=== PATIENT | female | born 1960 | race Native Hawaiian/Other Pacific Islander ===

== ENCOUNTER 2016-09-15 12:20 | Outpatient (CLI) | payer OTHER ==
[~2016-09-15 12:20] MED LIST: ACET7.5T70 PO; ACTOPLUS M15 MG/500 OR; ADIPEX PO; ALBUTEROL0.083 % IN; ALPR0.2566 PO; ASPIRIN325 M1 OR; CETIRIZINE10 MG PO; CLOPIDOGREL75 MG PO; CYCL10TA35 PO; DALIRESP500 MC1 OR; DITROPAN XL10 MG PO; DOCU100C10 PO; FLUT0.05 NAS; FLUTMIS14 INH; GABA100C2 PO; HYDR25TA60 PO; IPRASOL5 IN; LACTSYP31 PO; LINZESS290 MCG PO; LIPITOR20 MG PO; LISI20TA11 PO; LISINOP/HCTZ1 TA2 PO; MUCINEX600 MG OR; MULT VITAMI1 OR; NAPROSYN500 MG OR; NEXIUM40 M1 PO; OMEPRAZOLE20 M1 PO; POLY3350 PO; PROVENTIL IN; PROVERA10 MG OR; RANI150T78 PO; SPIRIVA IN; TOPAMAX50 MG OR; TRAM50TA PO; XYZAL5 MG PO; Z-PAK PO
[2016-09-15 13:15] LABS: PLATELET COUNT 209 K/uL (152-353)
== END 2016-09-15 19:18 | disposition home or self-care (01) ==
LOC: LAB 12:20
PROVIDERS: Nurse Practitioner Family
DX: D64.89 Other specified anemias (principal)
CPT/HCPCS: 85027

== ENCOUNTER 2016-11-11 13:36 | Outpatient (CLI) | payer OTHER ==
[2016-11-11 15:58] LABS: PLATELET COUNT 186 K/uL (152-353)
[2016-11-11 18:55] LABS: POTASSIUM 3.7 mmol/L (3.6-5.2); SODIUM 145 mmol/L (136-145)
== END 2016-11-11 20:48 | disposition home or self-care (01) ==
LOC: LAB 13:36
PROVIDERS: Nurse Practitioner Family
DX: I10 Essential (primary) hypertension (principal); E78.4 Other hyperlipidemia; Z79.899 Other long term (current) drug therapy; I25.10 Atherosclerotic heart disease of native coronary artery without angina pectoris; D64.89 Other specified anemias; E55.9 Vitamin D deficiency, unspecified; J44.9 Chronic obstructive pulmonary disease, unspecified
CPT/HCPCS: 80053; 80061; 82306; 82607; 83036; 84439; 84443; 85027

== ENCOUNTER 2017-01-10 09:15 | Inpatient (IN) | payer OTHER ==
[~2017-01-10] VITALS: Ht 160 cm; Wt 90.8 kg
[2017-01-10 09:20] VITALS: BP 162/92; TEMP 98.5
[2017-01-10 10:40] LABS: PLATELET COUNT 143 K/uL (152-353)
[2017-01-10 10:55] LABS: POTASSIUM 3.7 mmol/L (3.6-5.2); SODIUM 141 mmol/L (136-145)
[2017-01-10 11:20] VITALS: BP 144/89
[2017-01-10 11:34] LABS: PARTIAL THROMBOPLASTIN TIME 28.3 SECONDS (24.5-33.6)
[2017-01-10 13:20] VITALS: BP 152/90
[2017-01-10] MEDS ORDERED: ASPIRIN 81 LOW81 MG PO (18:13)
[2017-01-10] MEDS ORDERED: LIPITOR10 MG PO (18:14)
[2017-01-10] MEDS ORDERED: ATEN25TA21 PO (18:19)
[2017-01-10] MEDS ORDERED: ULTRACET1 TAB PO (18:19)
[2017-01-10] MEDS ORDERED: INCRUSE EL62.5 MCG/I IN (18:20)
[2017-01-10 18:25] VITALS: BP 141/50; TEMP 99.5; Ht 160 cm; Wt 90.8 kg
--- NOTE | 2017-01-10 20:00 | NUR ---
PM ASSESSMENT COMPLETED. PT ALERT AND ORIENTED. LAUGHING AND TALKING WITH NURSE. NURSE REVIEWED IMPORTANCE OF INCENTIVE SPIROMETER AND AMBULATION. PT VOICED UNDERSTANDING. NO COMPLAINTS AT THIS TIME.
[2017-01-10 20:14] VITALS: BP 124/60; TEMP 97.7
--- NOTE | 2017-01-10 21:30 | NUR ---
WARM BLANKET GIVEN. PT VOICES NO COMPLAINTS.
[2017-01-11] VITALS (7 sets, daily range): BP systolic 101–148; BP diastolic 35–71; TEMP 97.8–99.3
[2017-01-11 05:09] LABS: PLATELET COUNT 143 K/uL (152-353)
[2017-01-11 05:30] LABS: POTASSIUM 3.3 mmol/L (3.6-5.2); SODIUM 140 mmol/L (136-145)
--- NOTE | 2017-01-11 06:26 | NUR ---
PT AMBULATING IN HALLWAY.
--- NOTE | 2017-01-11 08:05 | NUR ---
BREATHING TX DUONEB GIVEN AT THIS TIME, PT IN NO DISTRESS. BS CLEAR. 98% ON ROOM AIR. HR 60. WILL CONT TO MONITOR.
[2017-01-12 04:00] VITALS: BP 119/74; TEMP 98.7
[2017-01-12 05:19] LABS: PLATELET COUNT 120 K/uL (152-353)
[2017-01-12 05:43] LABS: POTASSIUM 3.8 mmol/L (3.6-5.2); SODIUM 140 mmol/L (136-145)
[2017-01-12 08:00] VITALS: BP 144/57; TEMP 97.4
[2017-01-12 12:00] VITALS: BP 125/53; TEMP 97.8
[2017-01-12 16:10] VITALS: BP 114/48; TEMP 97.6
[2017-01-12 20:00] VITALS: BP 140/64; TEMP 97.7
[2017-01-13] VITALS: BP 146/85; TEMP 97.7
[2017-01-13 04:00] VITALS: BP 120/64; TEMP 98.1
[2017-01-13 05:10] LABS: PLATELET COUNT 157 K/uL (152-353)
[2017-01-13 05:28] LABS: POTASSIUM 4.1 mmol/L (3.6-5.2); SODIUM 141 mmol/L (136-145)
[2017-01-13 08:00] VITALS: BP 129/48; TEMP 97.4
[2017-01-13 12:00] VITALS: BP 103/46; TEMP 97.6
[2017-01-13 16:00] VITALS: BP 150/81; TEMP 98.6
[2017-01-13 20:00] VITALS: BP 143/45; TEMP 98.1
[2017-01-14 00:20] VITALS: BP 113/50; TEMP 97.8
[2017-01-14 04:00] VITALS: BP 143/51; TEMP 97.8
[2017-01-14 05:44] LABS: PLATELET COUNT 163 K/uL (152-353)
[2017-01-14 06:01] LABS: POTASSIUM 3.9 mmol/L (3.6-5.2); SODIUM 139 mmol/L (136-145)
--- NOTE | 2017-01-14 07:39 | NUR ---
BREATHING TX DUONEB GIVEN AT THIS TIME, PT IN NO ACUTE DISTRESS.
[2017-01-14 08:00] VITALS: BP 150/70; TEMP 98.3
[2017-01-14 11:59] VITALS: BP 107/53; TEMP 98.2
== END 2017-01-14 16:30 | disposition home or self-care (01) | DRG 871 ==
LOC: ED 09:15 → MED/SURG 15:11
PROVIDERS: Internal Medicine; ADMIT Specialist
DX: A41.89 Other specified sepsis (principal); J18.8 Other pneumonia, unspecified organism; E87.6 Hypokalemia; J44.9 Chronic obstructive pulmonary disease, unspecified; I25.10 Atherosclerotic heart disease of native coronary artery without angina pectoris; D50.8 Other iron deficiency anemias
CPT/HCPCS: 36415; 36600; 80053; 82805; 83735; 84100; 85027; 85610; 85730; 86850; 86900; 86901; 87040; 87077; 87185; 87186; 87205; 93005; 94640; 94664; 94760; 96372; 99284; J1644; J1956; Q9963

== ENCOUNTER 2017-01-28 08:59 | Emergency (ER) | payer OTHER ==
[~2017-01-28] VITALS: Ht 167.6 cm; Wt 85.3 kg
[~2017-01-28 08:59] MED LIST changes: +ASPIRIN 81 LOW81 MG PO; +ATEN25TA21 PO; +INCRUSE EL62.5 MCG/I IN; +LIPITOR10 MG PO; +ULTRACET1 TAB PO
[2017-01-28 09:18] VITALS: BP 129/46; TEMP 98.1
[2017-01-28] MEDS ORDERED: FLUTMIS14 INH (09:23)
[2017-01-28] MEDS ORDERED: FLUTICASONE50 MCG (09:24)
== END 2017-01-28 10:20 | disposition home or self-care (01) ==
LOC: ED 08:59
DX: S83.8X1A Sprain of other specified parts of right knee, initial encounter (principal); S93.491A Sprain of other ligament of right ankle, initial encounter; W18.39XA Other fall on same level, initial encounter; Y92.098 Other place in other non-institutional residence as the place of occurrence of the external cause
CPT/HCPCS: 99282

== ENCOUNTER 2017-05-18 11:35 | Outpatient (CLI) | payer OTHER ==
[~2017-05-18 11:35] MED LIST changes: +FLUTICASONE50 MCG
[2017-05-18 12:46] LABS: PLATELET COUNT 230 K/uL (152-353)
[2017-05-18 13:17] LABS: POTASSIUM 3.4 mmol/L (3.6-5.2); SODIUM 142 mmol/L (136-145)
== END 2017-05-18 12:35 | disposition home or self-care (01) ==
LOC: LAB 11:35
PROVIDERS: Nurse Practitioner Family
DX: D64.89 Other specified anemias (principal); E87.6 Hypokalemia; I10 Essential (primary) hypertension; J44.9 Chronic obstructive pulmonary disease, unspecified; I25.10 Atherosclerotic heart disease of native coronary artery without angina pectoris; E78.4 Other hyperlipidemia; Z79.899 Other long term (current) drug therapy; Z51.81 Encounter for therapeutic drug level monitoring
CPT/HCPCS: 80053; 80061; 83036; 84436; 84443; 85027

== ENCOUNTER 2017-09-26 09:18 | Observation (INO) | payer OTHER ==
[~2017-09-26] VITALS: Ht 160 cm; Wt 98.6 kg
[2017-09-26 09:58] VITALS: BP 179/73; TEMP 98.8; Ht 160 cm; Wt 98.6 kg
[2017-09-26 10:49] LABS: PLATELET COUNT 196 K/uL (152-353)
[2017-09-26 11:07] LABS: PARTIAL THROMBOPLASTIN TIME 27.8 SECONDS (24.5-33.6)
[2017-09-26 11:11] LABS: POTASSIUM 3.9 mmol/L (3.6-5.2)
[2017-09-26 12:00] VITALS: BP 179/73; TEMP 98.8
[2017-09-26 16:00] VITALS: BP 179/73; TEMP 98.8
[2017-09-26 20:00] VITALS: BP 136/92; TEMP 98.1
[2017-09-26 23:52] VITALS: BP 142/40; TEMP 97.9
[2017-09-27 04:00] VITALS: BP 155/65; TEMP 97.9
[2017-09-27 08:00] VITALS: BP 142/56; TEMP 98
[2017-09-27 12:00] VITALS: BP 134/41; TEMP 98
[2017-09-27 12:46] LABS: PLATELET COUNT 190 K/uL (152-353)
[2017-09-27 13:01] LABS: POTASSIUM 4.9 mmol/L (3.6-5.2)
[2017-09-27 16:00] VITALS: BP 129/43; TEMP 97.8
[2017-09-27 20:00] VITALS: BP 135/52; TEMP 98.2
[2017-09-28] VITALS: BP 159/70; TEMP 97.8
[2017-09-28 04:00] VITALS: BP 163/54; TEMP 98.4
[2017-09-28 05:39] LABS: PLATELET COUNT 181 K/uL (152-353)
[2017-09-28 05:51] LABS: POTASSIUM 4.3 mmol/L (3.6-5.2)
[2017-09-28 08:06] VITALS: BP 153/51; TEMP 98.1
== END 2017-09-28 14:05 | disposition home or self-care (01) ==
LOC: MED/SURG 09:18
PROVIDERS: Family Medicine
DX: J44.1 Chronic obstructive pulmonary disease with (acute) exacerbation (principal); I10 Essential (primary) hypertension; I25.10 Atherosclerotic heart disease of native coronary artery without angina pectoris; E78.4 Other hyperlipidemia; K21.9 Gastro-esophageal reflux disease without esophagitis; R60.0 Localized edema; R06.02 Shortness of breath
CPT/HCPCS: 36415; 36600; 80053; 82805; 83735; 83880; 85027; 85610; 85730; 93005; 94640; 94664; 94760; 96367; 96374; 99220; G0378; G0379; J3490

== ENCOUNTER 2017-11-10 13:18 | Outpatient (CLI) | payer OTHER ==
[2017-11-10 13:35] LABS: PLATELET COUNT 145 K/uL (152-353)
[2017-11-10 13:58] LABS: POTASSIUM 3.9 mmol/L (3.6-5.2)
== END 2017-11-10 22:06 | disposition home or self-care (01) ==
LOC: LAB 13:18
PROVIDERS: Nurse Practitioner Family
DX: D64.89 Other specified anemias (principal); J44.1 Chronic obstructive pulmonary disease with (acute) exacerbation; Z79.899 Other long term (current) drug therapy; Z51.81 Encounter for therapeutic drug level monitoring; I10 Essential (primary) hypertension; I25.10 Atherosclerotic heart disease of native coronary artery without angina pectoris
CPT/HCPCS: 80053; 80061; 83036; 84436; 84443; 85027

== ENCOUNTER 2018-02-23 13:54 | Outpatient (CLI) | payer OTHER ==
[2018-02-23 15:16] LABS: PLATELET COUNT 147 K/uL (152-353)
[2018-02-23 15:18] LABS: POTASSIUM 3.4 mmol/L (3.6-5.2)
== END 2018-02-23 19:21 | disposition home or self-care (01) ==
LOC: LAB 13:54
PROVIDERS: Nurse Practitioner Family
DX: D64.89 Other specified anemias (principal); E87.6 Hypokalemia; J44.1 Chronic obstructive pulmonary disease with (acute) exacerbation; I10 Essential (primary) hypertension; E78.4 Other hyperlipidemia; I25.10 Atherosclerotic heart disease of native coronary artery without angina pectoris; Z79.899 Other long term (current) drug therapy; Z51.81 Encounter for therapeutic drug level monitoring; R06.09 Other forms of dyspnea
CPT/HCPCS: 80053; 80061; 83036; 83880; 84436; 84443; 85027

== ENCOUNTER 2018-04-07 09:21 | Emergency (ER) | payer OTHER ==
[~2018-04-07] VITALS: Ht 160 cm; Wt 113.4 kg
[2018-04-07 09:28] VITALS: TEMP 97.9
[2018-04-07 10:36] LABS: PLATELET COUNT 178 K/uL (152-353)
[2018-04-07 12:03] LABS: POTASSIUM 3.6 mmol/L (3.6-5.2); SODIUM 142 mmol/L (136-145)
[2018-04-07 12:25] VITALS: BP 144/84
== END 2018-04-07 12:14 | disposition home or self-care (01) ==
LOC: ED 09:21
PROVIDERS: Family Medicine
DX: J18.8 Other pneumonia, unspecified organism (principal); R06.02 Shortness of breath; R05 Cough; Z72.0 Tobacco use; J44.9 Chronic obstructive pulmonary disease, unspecified; I10 Essential (primary) hypertension; E11.9 Type 2 diabetes mellitus without complications
CPT/HCPCS: 36415; 80053; 82550; 82553; 83880; 84484; 85027; 93005; 94664; 99284; J1956

== ENCOUNTER 2018-07-13 13:41 | Outpatient (CLI) | payer OTHER | END 2018-07-13 21:46 | disposition home or self-care (01) | LOC: RAD 13:41 | DX: J44.9 Chronic obstructive pulmonary disease, unspecified (principal); R06.02 Shortness of breath ==

== ENCOUNTER 2020-10-06 08:44 | Outpatient (CLI) | payer OTHER | END 2020-10-06 22:10 | disposition home or self-care (01) | LOC: RAD 08:44 | PROVIDERS: ATTEND Nurse Practitioner Family | DX: Z13.820 Encounter for screening for osteoporosis (principal); I10 Essential (primary) hypertension; E66.01 Morbid (severe) obesity due to excess calories; E78.49 Other hyperlipidemia; M06.9 Rheumatoid arthritis, unspecified; Z99.81 Dependence on supplemental oxygen; I25.10 Atherosclerotic heart disease of native coronary artery without angina pectoris; I48.91 Unspecified atrial fibrillation; F41.8 Other specified anxiety disorders; J44.9 Chronic obstructive pulmonary disease, unspecified; N95.8 Other specified menopausal and perimenopausal disorders ==